=== PATIENT | female | born 1965 | race Caucasian/White ===

== ENCOUNTER → 2017-01-13 | Outpatient (CLI) | payer BC ==
--- NOTE | 2017-01-13 11:38 | MM ---
Reason for exam: additional evaluation requested from prior study. Last mammogram was performed 1 year ago. History: Patient is postmenopausal and has history of breast cancer at age 49. Malignant MG pre op needle loc LT of the left breast, December 19, 2014. Lumpectomy of the left breast, December 19, 2014. Malignant MG stereo VAD BX LT of the left breast, December 01, 2014. Benign US biopsy breast VAD RT of the right breast, December 01, 2014. Radiation therapy of the left breast, 2014. Took hormonal contraceptives for 3 years beginning at age 17. Taking antineoplastic for 1 year beginning at age 49. Physical Findings: Nurse did not find any significant physical abnormalities on exam. MG Diagnostic Mammo w CAD PALOMO Bilateral CC and MLO view(s) were taken. Prior study comparison: January 12, 2016, bilateral MG diagnostic mammo w CAD PALOMO. August 07, 2015, bilateral MG 3d diag mammo w/cad PALOMO. There are scattered fibroglandular densities. Finding: Architectural distortion in the left breast consistent previous surgery. No significant changes in finding since January 12, 2016 and August 07, 2015. These results were verbally communicated with the patient and result sheet given to the patient on 01/13/17. ASSESSMENT: Benign, BI-RAD 2 RECOMMENDATION: Follow-up diagnostic mammogram of both breasts in 1 year.
== END | disposition home or self-care (01) ==
LOC: RADMAMWWP 10:17
PROVIDERS: ATTEND Radiology Diagnostic Radiology
DX: Z08 Encounter for follow-up examination after completed treatment for malignant neoplasm (principal); Z85.3 Personal history of malignant neoplasm of breast

== ENCOUNTER → 2017-06-17 | Outpatient (CLI) | payer BC ==
--- NOTE | 2017-06-17 15:35 | BD ---
EXAMINATION TYPE: MG DEXA axial skeleton. DATE OF EXAM: 06/17/2017 COMPARISON: DEXA bone scan April 26, 2015 CLINICAL HISTORY: Postmenopausal female Height: 65 Weight: 172.4 FRAX RISK QUESTIONS: Alcohol (3 or more units per day): no Family History (Parent hip fracture): no Glucocorticoids (More than 3mos): no (Ex: prednisone, prednisolone, methylprednisolone, dexamethasone, and hydrocortisone). History of Fracture in Adulthood: no Secondary Osteoporosis: 1. Type 1 Diabetes: no 2. Hyperthyroidism: no 3. Menopause before 45: no 4. Malnutrition: no 5. Chronic liver disease: no Rheumatoid Arthritis: no Current Tobacco Use: no RISK FACTORS HISTORY OF: Hip Fracture (Right/Left): no Spine Fracture: no History of Wrist Fracture: no Surgery to Spine/Hip(right/left)/Wrist (right/left): no family History of Osteoporosis: no Active: no Diet low in dairy products/other sources of calcium: no Postmenopausal woman: age 43 Lost more than 2 inches in height since high school: no Frequent falls: no Poor Health: no Hyperparathyroidism: no Adrenal Insufficiency: no MEDICATIONS: aldactone, dynzide plaquil, vit d, calcium Arimidex Thyroid Medications: synthroid How Long: Additional History: ot has had breast cancer EXAM MEASUREMENTS: Bone mineral densitometry was performed using the [employer] System. Bone mineral density as measured about the Lumbar spine is: ----- L1-L4(G/cm2): 1.291 T Score Values are as follows: ----- L2: 1.4 ----- L3: 2.2 ----- L4: -0.3 ----- L1-L4: 0.9 Bone mineral density has: increased 2.3 % since study of: 04.26.2015 Bone mineral density about the R hip (g/cm2): 0.959 Bone mineral density about the L hip (g/cm2): 0.941 T Score values are as follows: -----R Neck: -0.6 -----L Neck: -0.7 -----R Total: 0.0 -----L Total: -0.3 Bone mineral density has: decreased -2.4 % since study of: 04.26.2015 IMPRESSION: Normal (Values between +1 and -1 indicate normal bone mass). Consider repeating this study in 5 year s or sooner if there is some new clinical indication. NOTE: T-SCORE=SD OF THE YOUNG ADULT MEAN.
== END | disposition home or self-care (01) ==
LOC: RADBDWWP 14:47
PROVIDERS: ATTEND Internal Medicine Hematology & Oncology
DX: C50.919 Malignant neoplasm of unspecified site of unspecified female breast (principal); Z79.890 Hormone replacement therapy; N95.1 Menopausal and female climacteric states
CPT/HCPCS: 77080

== ENCOUNTER → 2018-01-14 | Outpatient (CLI) | payer BC ==
--- NOTE | 2018-01-15 08:49 | MM ---
Reason for exam: screening (asymptomatic). Last mammogram was performed 1 year ago. History: Patient is postmenopausal and has history of breast cancer at age 49. Malignant MG pre op needle loc LT of the left breast, December 19, 2014. Lumpectomy of the left breast, December 19, 2014. Malignant MG stereo VAD BX LT of the left breast, December 01, 2014. Benign US biopsy breast VAD RT of the right breast, December 01, 2014. Radiation therapy of the left breast, 2014. Took hormonal contraceptives for 3 years beginning at age 17. Taking antineoplastic for 1 year beginning at age 49. Physical Findings: A clinical breast exam by your physician is recommended on an annual basis and results should be correlated with mammographic findings. MG Screening Mammo w CAD Bilateral CC and MLO view(s) were taken. Prior study comparison: January 13, 2017, bilateral MG diagnostic mammo w CAD PALOMO. January 12, 2016, bilateral MG diagnostic mammo w CAD PALOMO. The breast tissue is heterogeneously dense. This may lower the sensitivity of mammography. Post operative changes on the left breast. ASSESSMENT: Benign, BI-RAD 2 RECOMMENDATION: Routine screening mammogram of both breasts in 1 year.
== END | disposition home or self-care (01) ==
LOC: RADMAMWWP 12:58
PROVIDERS: ATTEND Radiology Diagnostic Radiology
DX: Z12.31 Encounter for screening mammogram for malignant neoplasm of breast (principal); C50.912 Malignant neoplasm of unspecified site of left female breast
CPT/HCPCS: 77067

== ENCOUNTER → 2019-01-11 | Outpatient (CLI) | payer BC ==
--- NOTE | 2019-01-12 14:36 | MM ---
Reason for exam: screening (asymptomatic). Last mammogram was performed 1 year ago. History: Patient is postmenopausal and has history of breast cancer at age 49. Malignant MG pre op needle loc LT of the left breast, December 19, 2014. Lumpectomy of the left breast, December 19, 2014. Malignant MG stereo VAD BX LT of the left breast, December 01, 2014. Benign US biopsy breast VAD RT of the right breast, December 01, 2014. Radiation therapy of the left breast, 2014. Took hormonal contraceptives for 3 years beginning at age 17. Taking antineoplastic for 1 year beginning at age 49. Took other hormone for 4 years. Physical Findings: A clinical breast exam by your physician is recommended on an annual basis and results should be correlated with mammographic findings. MG Screening Mammo w CAD Bilateral CC and MLO view(s) were taken. Prior study comparison: January 14, 2018, bilateral MG screening mammo w CAD. January 13, 2017, bilateral MG diagnostic mammo w CAD PALOMO. The breast tissue is heterogeneously dense. This may lower the sensitivity of mammography. Benign appearing bilateral calcifications. No suspicious abnormality. Left post therapy change. No significant changes when compared with prior studies. ASSESSMENT: Benign, BI-RAD 2 RECOMMENDATION: Routine screening mammogram of both breasts in 1 year.
== END | disposition home or self-care (01) ==
LOC: RADMAMWWP 14:43
PROVIDERS: ATTEND Radiology Diagnostic Radiology
DX: Z12.31 Encounter for screening mammogram for malignant neoplasm of breast (principal)
CPT/HCPCS: 77067

== ENCOUNTER → 2019-05-12 | Outpatient (CLI) | payer BC ==
--- NOTE | 2019-05-12 16:15 | BD ---
EXAMINATION TYPE: Axial Bone Density DATE OF EXAM: 05/12/2019 COMPARISON: NONE CLINICAL HISTORY: Height: 5 FT 4 1/4IN Weight: 185 FRAX RISK QUESTIONS: Glucocorticoids (More than 3mos): YES (Ex: prednisone, prednisolone, methylprednisolone, dexamethasone, and hydrocortisone). Secondary Osteoporosis: 3. Menopause before 45: YES Rheumatoid Arthritis: YES Current Tobacco Use: YES RISK FACTORS HISTORY OF: Active: YES Postmenopausal woman: AGE 42 MEDICATIONS: Thyroid Medications: YES Which medication: LEVOTHYROXINE How Long: APPROX 2004 Additional Medications: LEVOTHYROXINE, PLAQUENIL, ALDACTONE, DIAZIDE, ARIMEX, Additional History: PT HAS LUPUS EXAM MEASUREMENTS: Bone mineral densitometry was performed using the [email or web address] System. Bone mineral density as measured about the Lumbar spine is: ----- L1-L4(G/cm2): 1.354 T Score Values are as follows: ----- L2: 2.4 ----- L3: 3.8 ----- L4: -0.2 ----- L1-L4: 1.4 Bone mineral density has: INCREASED 7.4 % since study of: 2017 Bone mineral density about the R hip (g/cm2): 0.957 Bone mineral density about the L hip (g/cm2): 0.932 T Score values are as follows: -----R Neck: -0.6 -----L Neck: -0.8 -----R Total: -0.3 -----L Total: -0.3 Bone mineral density has: DECREASED -1.4 % since study of: 2017 IMPRESSION: Normal (Values between +1 and -1 indicate normal bone mass). Consider repeating this study in 5 year s or sooner if there is some new clinical indication. NOTE: T-SCORE=SD OF THE YOUNG ADULT MEAN.
== END | disposition home or self-care (01) ==
LOC: RADBDWWP 09:15
PROVIDERS: ATTEND Internal Medicine Hematology & Oncology
DX: D05.90 Unspecified type of carcinoma in situ of unspecified breast (principal); N95.1 Menopausal and female climacteric states; Z79.890 Hormone replacement therapy
CPT/HCPCS: 77080

== ENCOUNTER → 2020-07-24 | Outpatient (CLI) | payer BC ==
--- NOTE | 2020-07-25 12:19 | MM ---
Reason for exam: screening (asymptomatic). Last mammogram was performed 1 year and 6 months ago. History: Patient is postmenopausal and has history of breast cancer at age 49. Malignant MG pre op needle loc LT of the left breast, December 19, 2014. Lumpectomy of the left breast, December 19, 2014. Malignant MG stereo VAD BX LT of the left breast, December 01, 2014. Benign US biopsy breast VAD RT of the right breast, December 01, 2014. Radiation therapy of the left breast, 2014. Took hormonal contraceptives for 3 years beginning at age 17. Taking antineoplastic for 1 year beginning at age 49. Took other hormone for 5 years. Physical Findings: A clinical breast exam by your physician is recommended on an annual basis and results should be correlated with mammographic findings. MG Screening Mammo w CAD Bilateral CC and MLO view(s) were taken. Prior study comparison: January 11, 2019, bilateral MG screening mammo w CAD. January 14, 2018, bilateral MG screening mammo w CAD. The breast tissue is heterogeneously dense. This may lower the sensitivity of mammography. Finding #1: Architectural distortion in the upper outer quadrant, middle, posterior position of the left breast consistent with known lumpectomy changes. Finding #2: There are typically benign dystrophic calcifications in the right breast. There is no discrete abnormality. ASSESSMENT: Benign, BI-RAD 2 RECOMMENDATION: Routine screening mammogram of both breasts in 1 year.
== END | disposition home or self-care (01) ==
LOC: RADMAMWWP 11:14
PROVIDERS: ATTEND Radiology Diagnostic Radiology
DX: Z12.31 Encounter for screening mammogram for malignant neoplasm of breast (principal); Z85.3 Personal history of malignant neoplasm of breast
CPT/HCPCS: 77067

== ENCOUNTER → 2021-07-25 | Outpatient (CLI) | payer BC ==
--- NOTE | 2021-07-27 10:41 | MM ---
Reason for exam: screening (asymptomatic). Last mammogram was performed 1 year ago. History: Patient is postmenopausal and has history of breast cancer at age 49. Malignant MG pre op needle loc LT of the left breast, December 19, 2014. Lumpectomy of the left breast, December 19, 2014. Malignant MG stereo VAD BX LT of the left breast, December 01, 2014. Benign US biopsy breast VAD RT of the right breast, December 01, 2014. Radiation therapy of the left breast, 2014. Took hormonal contraceptives for 3 years beginning at age 17. Taking antineoplastic for 1 year beginning at age 49. Took other hormone for 5 years. Physical Findings: A clinical breast exam by your physician is recommended on an annual basis and results should be correlated with mammographic findings. MG Screening Mammo w CAD Bilateral CC and MLO view(s) were taken. Prior study comparison: July 24, 2020, bilateral MG screening mammo w CAD. January 11, 2019, bilateral MG screening mammo w CAD. The breast tissue is heterogeneously dense. This may lower the sensitivity of mammography. There is no discrete abnormality. No significant changes when compared with prior studies. ASSESSMENT: Benign, BI-RAD 2 RECOMMENDATION: Routine screening mammogram of both breasts in 1 year.
== END | disposition home or self-care (01) ==
LOC: RADMAMWWP 13:51
PROVIDERS: ATTEND Radiology Radiation Oncology
DX: C50.912 Malignant neoplasm of unspecified site of left female breast (principal)
CPT/HCPCS: 77067

== ENCOUNTER → 2022-12-26 | Outpatient (CLI) | payer BC ==
--- NOTE | 2022-12-26 07:38 | XR ---
EXAMINATION TYPE: XR lumbosacral spine min 4V DATE OF EXAM: 12/26/2022 7:30 AM INDICATION: Patient age:Female; 57 years old; Reason for study: M54.9 dorsalgia; COMPARISON: None TECHNIQUE: Frontal, lateral , bilateral oblique and coned in L5-S1 lateral views of the spine. FINDINGS: No evidence of any acute osseous pathology. No evidence of loss of vertebral body height i s seen. There is scoliosis alignment of the lumbar vertebral bodies with dextro scoliosis apex L2-L3 which is mild. Mild scattered disc space narrowing worse at L2-L3. Multilevel marginal osteophyte for mation throughout the visualized spine. There is facet joint arthropathy throughout the spine. Scatte red at least mild neural foraminal stenosis worse at L5-S1. IMPRESSION: 1. No acute fracture. 2. Mild to moderate multilevel disc degeneration.
== END | disposition home or self-care (01) ==
LOC: RADXRMAIN 07:11
PROVIDERS: ATTEND Physician Assistant
DX: M51.36 Other intervertebral disc degeneration, lumbar region (principal)
CPT/HCPCS: 72110

== ENCOUNTER → 2023-02-14 | Outpatient (CLI) | payer BC ==
--- NOTE | 2023-02-14 10:20 | XR ---
EXAMINATION TYPE: XR Hip Bilateral Complete DATE OF EXAM: 02/14/2023 COMPARISON: NONE HISTORY: Pain TECHNIQUE: 2 views submitted FINDINGS: There is no evidence of erosive change or acute fracture. There is hypertrophic change of the acetabulum bilaterally. Vascular calcification pelvis noted. IMPRESSION: 1. Hypertrophic change of the acetabulum bilaterally can be associated with femoral acetabular manage ment..
== END | disposition home or self-care (01) ==
LOC: RADXRMAIN 08:42
PROVIDERS: ATTEND Physician Assistant
DX: M25.812 Other specified joint disorders, left shoulder (principal); M25.811 Other specified joint disorders, right shoulder
CPT/HCPCS: 73521

== ENCOUNTER 2023-02-15 12:48 | Emergency (ER) | payer BC ==
[2023-02-15] MEDS ORDERED: methylPREDNISolone SOD SUCCI 125 MG/2 ML VIAL IM STA (13:29)
[2023-02-15] MEDS ORDERED: KETOROLAC 15 MG/ML 1 ML VIAL IM STA (13:29)
--- NOTE | 2023-02-15 13:34 | ED ---
General Adult HPI - General Chief complaint: Extremity Injury, Lower Stated complaint: Right hip pain Time Seen by Provider: 02/15/23 13:05 Source: patient Mode of arrival: ambulatory Limitations: no limitations - History of Present Illness Initial comments: 57-year-old female with a past medical history of hypertension, Sjogren's disease, thyroid disorder presents to the emergency room for right leg pain. Patient states that she has had back pain for about a year now and has had pain extending down into the right lateral leg on and off. Usually it is muscle cramps. However today she woke up with a burning pain and the leg felt hot in the right lateral thigh. Patient states it felt similar to a blood clot she had in the past in her other leg and she is very concerned she has a blood clot. She denies any weakness of the leg, denies any bladder or bowel changes, saddle anesthesia, fevers or chills, IV drug abuse. Denies any difficulty walking. - Related Data Home Medications Medication Instructions Recorded Confirmed Plaquenil(Unknown Dose) 12/19/14 12/19/14 Synthroid(Unknown Dose) 12/19/14 12/19/14 Triamterene-Hctz 37.5-25Mg 1 each PO DAILY 12/19/14 12/19/14 [Dyazide] Previous Rx's Medication Instructions Recorded predniSONE 50 mg PO DAILY #5 tablet 02/15/23 Allergies Allergy/AdvReac Type Severity Reaction Status Date / Time Iodinated Contrast Media Allergy Rash/Hives Verified 02/15/23 13:04 [Iodinated Contrast Media - IV Dye] lidocaine Allergy Rash/Hives Verified 02/15/23 13:04 penicillin G Allergy Rash/Hives Verified 02/15/23 13:04 Sulfa (Sulfonamide Allergy Rash/Hives Verified 02/15/23 13:04 Antibiotics) Review of Systems ROS Statement: Those systems with pertinent positive or pertinent negative responses have been documented in the HPI. ROS Other: All systems not noted in ROS Statement are negative. 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 History of Any Multi-Drug Resistant Organisms: None Reported Past Surgical History: Appendectomy, Tubal Ligation Additional Past Surgical History / Comment(s): fibroids removed from uterus Past Anesthesia/Blood Transfusion Reactions: No Reported Reaction Past Psychological History: No Psychological Hx Reported Past Alcohol Use History: Rare Past Drug Use History: None Reported - Past Family History Mother Family Medical History: Hypertension General Exam Limitations: no limitations General appearance: alert, in no apparent distress Head exam: Present: atraumatic Eye exam: Present: normal appearance, PERRL, EOMI. Absent: scleral icterus, conjunctival injection ENT exam: Present: normal exam, mucous membranes moist Neck exam: Present: normal inspection, full ROM Respiratory exam: Present: normal lung sounds bilaterally. Absent: respiratory distress, wheezes Cardiovascular Exam: Present: regular rate, normal rhythm, normal heart sounds Extremities exam: Present: full ROM (Full range of motion of the right lower ext remity, positive straight leg raise test.), normal capillary refill (Capillary refill less than 2 seconds right lower extremity, DP pulse 2+). Absent: calf tenderness, other (No edema of the right lower extremity) Back exam: Absent: vertebral tenderness Neurological exam: Present: alert Course Vital Signs 02/15/23 13:01 Temperature 97.6 F Pulse Rate 62 Respiratory 18 Rate Blood Pressure 125/78 O2 Sat by Pulse 98 Oximetry Medical Decision Making - Medical Decision Making Was pt. sent in by a medical professional or institution (, PA, PAN HELPER, urgent care, hospital, or fdc...) When possible be specific @ -no Did you speak to anyone other than the patient for history (EMS, parent, family, police, friend...)? What history was obtained from this source @ -daughter Did you review nursing and triage notes (agree or disagree)? Why? @ -agreed Were old charts reviewed (outside hosp., previous admission, EMS record, old EKG, old radiological studies, urgent care reports/EKG's, fdc records)? Report findings @ -yes, xrays of back and hip Differential Diagnosis (chest pain, altered mental status, abdominal pain women, abdominal pain men, vaginal bleeding, weakness, fever, dyspnea, syncope, headache, dizziness, GI bleed, back pain, seizure, CVA, palpatations, mental health)? @ -Differential Back Pain: Strain, zoster, cauda equina syndrome, epidural abscess, vertebral osteomyelitis, discitis, fracture, subluxation, disc herniation, DJD, spinal stenosis, dissection, AAA, pancreatitis, peptic ulcer disease, pyelonephritis, kidney stone, this is not meant to be an all-inclusive list. EKG interpreted by me (3pts min.). @ -none X-rays interpreted by me (1pt min.). @ -None CT interpreted by me (1pt min.). @ -None done U/S interpreted by me (1pt. min.). @ -None done What testing was considered but not performed or refused? (CT, X-rays, U/S, labs)? Why? @ -CT lumbar spine, not performed because outpatient MRI will be a much better test with less radiation exposure What meds were considered but not given or refused? Why? @ -narcotics, not needed Did you discuss the management of the patient with other professionals (professionals i.e. , PA, PAN HELPER, lab, RT, psych nurse, protective services social worker, raw stock machine loader, teacher, driver's license reviewing officer, casework manager)? Give summary @ -yes, ER Dr Was smoking cessation discussed for >3mins.? @ -No Was critical care preformed (if so, how long)? @ -No Were there social determinants of health that impacted care today? How? (Homelessness, low income, unemployed, alcoholism, drug addiction, transportation, low edu. Level, literacy, decrease access to med. care, long-term, rehab)? @ -No Was there de-escalation of care discussed even if they declined (Discuss DNR or withdrawal of care, Hospice)? DNR status @ -No What co-morbidities impacted this encounter? (DM, HTN, Smoking, COPD, CAD, Cancer, CVA, ARF, Chemo, Hep., AIDS, mental health diagnosis, sleep apnea, morbid obesity)? @ -None Was patient admitted / discharged? Hospital course, mention meds given and route, prescriptions, significant lab abnormalities, going to OR and other pertinent info. @ -Patient was seen in the exam room. HPI and physical exam as documented. No weakness of the right lower extremity. No red flag symptoms. Patient was given IM steroids and Toradol. Ultrasound was performed which was negative for DVT. Symptoms consistent with lumbar radiculopathy. Undiagnosed new problem with uncertain prognosis? @ -No Drug Therapy requiring intensive monitoring for toxicity (Heparin, Nitro, Insulin, Cardizem)? @ -No Were any procedures done? @ -No Diagnosis/symptom? @ -Lumbar radiculopathy, paresthesia Acute, or Chronic, or Acute on Chronic? @ -Acute on chronic Uncomplicated (without systemic symptoms) or Complicated (systemic symptoms)? @ -Uncomplicated Side effects of treatment? @ -No Exacerbation, Progression, or Severe Exacerbation? @ -Laceration Poses a threat to life or bodily function? How? (Chest pain, [place], [place], pneumonia, PE, COPD, DKA, ARF, appy, cholecystitis, CVA, Diverticulitis, Homicidal, Suicidal, threat to staff... and all critical care pts) @ -No Disposition Clinical Impression: Lumbar radiculopathy, right, Paresthesia Disposition: HOME SELF-CARE Condition: Good Instructions (If sedation given, give patient instructions): Lumbar Radiculopathy (ED) Additional Instructions: Please take steroid as directed starting 02/16/23. Take Tylenol for pain, do not take Motrin on the days you take the steroid. Take the steroid with food. Follow-up with your doctor. You could discuss outpatient MRI with your primary care. Return to the emergency room for any worsening symptoms. Prescriptions: predniSONE 50 mg PO DAILY #5 tablet Is patient prescribed a controlled substance at d/c from ED?: No Referrals: Te Westbrook MD [Primary Care Provider] - 1-2 days Time of Disposition: 14:18
--- NOTE | 2023-02-15 14:12 | US ---
EXAMINATION TYPE: US venous doppler duplex LE RT DATE OF EXAM: 02/15/2023 1:30 PM COMPARISON: NONE CLINICAL INDICATION: Female, 57 years old with history of pain; Right hip pain SIDE PERFORMED: Right TECHNIQUE: The lower extremity deep venous system is examined utilizing real time linear array sonog roverto with graded compression, doppler sonography and color-flow sonography. VESSELS IMAGED: Common Femoral Vein Deep Femoral Vein Greater Saphenous Vein * Femoral Vein Popliteal Vein Small Saphenous Vein * Proximal Calf Veins (* superficial vessels) Right Leg: Negative for DVT IMPRESSION: Grayscale, color doppler, spectral doppler imaging performed of the deep veins of the lo wer extremities. There is normal flow, compressibility, vascular waveforms.
[2023-02-15 14:42] VITALS: BP 130/74; PULSE 67; RESP 16; TEMP 97.7
== END 2023-02-15 14:38 | disposition home or self-care (01) ==
LOC: EC 12:48
DX: M54.16 Radiculopathy, lumbar region (principal); R20.2 Paresthesia of skin; I10 Essential (primary) hypertension; Z88.0 Allergy status to penicillin; Z88.1 Allergy status to other antibiotic agents; Z88.2 Allergy status to sulfonamides
CPT/HCPCS: 93971; 99283; 96372 ×2; J2930; J1885

== ENCOUNTER → 2024-01-02 | Outpatient (CLI) | payer OTHER ==
--- NOTE | 2024-01-02 15:13 | BD ---
EXAMINATION TYPE: Axial Bone Density DATE OF EXAM: 01/02/2024 CLINICAL HISTORY: 58 years old Female. ICD-10 CODE: Z92.23 Personal History of Estrogen Therapy Height: 64 Weight: 193 FRAX RISK QUESTIONS: Family History (Parent hip fracture): no History of Fracture in Adulthood: yes Secondary Osteoporosis: no Patient has Sjogren's Disease Current Tobacco Use: yes RISK FACTORS HISTORY OF: Surgery to Spine/Hip(right/left)/Wrist (right/left): no MEDICATIONS: Thyroid Medications: no Which medication: Synthroid How Lon+ years Osteoporosis Medications: no EXAM MEASUREMENTS: Bone mineral densitometry was performed using the [employer] System. Bone mineral density as measured about the Lumbar spine is: ----- L1-L4(G/cm2): 1.354 T Score Values are as follows: ----- L1: -1.0 ----- L2: 2.2 ----- L3: 3.4 ----- L4: 0.7 ----- L1-L4: 1.4 Z Score Values are as follows: ----- L1: -0.5 ----- L2: 2.7 ----- L3: 3.9 ----- L4: 1.2 ----- L1-L4: 1.9 Bone mineral density has: not changed since study of: 05/12/2019 Bone mineral density about the R hip (g/cm2): 0.969 Bone mineral density about the L hip (g/cm2): 0.997 T Score values are as follows: -----R Neck: -1.0 -----L Neck: -1.0 -----R Total: -0.3 -----L Total: -0.1 Z Score values are as follows: -----R Neck: -0.3 -----L Neck: -0.2 -----R Total: 0.1 -----L Total: 0.3 Bone mineral density has: Increased 1.3% since study of: 05/12/2019 FRAX%s: The graph provided illustrates a 8.8% chance for a major osteoporotic fx and a 0.5% chance fo r the hips probability for fx in 10 years time. IMPRESSION: Normal (Values between +1 and -1 indicate normal bone mass). Consider repeating this study in 5 year s or sooner if there is some new clinical indication. NOTE: T-SCORE=SD OF THE YOUNG ADULT MEAN.
--- NOTE | 2024-01-05 15:03 | MM ---
Reason for Exam: Screening (asymptomatic). Last screening mammogram was performed 12 month(s) ago. Patient History: Menarche at age 10. First Full-Term at age 16. Postmenopausal. Breast cancer, left, age 49. 12/19/2014, Lumpectomy on the Left side. 12/19/2014, Malignant Core Biopsy on the left side. 12/01/2014, Malignant Core Biopsy on the left side. 12/01/2014, Benign Core Biopsy on the right side. 2014, Radiation Therapy on the left side. Prior Study Comparison: 07/24/2020 Bilateral Screening Mammogram, [facility]. 07/25/2021 Bilateral Screening Mammogram, [facility]. 12/26/2022 Bilateral MG 3D screening mammo w/cad, [facility]. Tissue Density: There are scattered areas of fibroglandular density. Findings: Analyzed By CAD. Right breast biopsy clip. Left breast surgical clips and calcifications. Right breast: There is no suspicious group of microcalcifications or new suspicious mass. Left breast: There is no suspicious group of microcalcifications or new suspicious mass. Overall Assessment: Benign, BI-RAD 2 Management: Screening Mammogram of both breasts in [address] [facility] will attempt to contact patient to return for supplemental views and ultrasound if indicated. Patient should continue monthly self-breast exams. A clinical breast exam by your physician is recommended on an annual basis. This exam should not preclude additional follow-up of suspicious palpable abnormalities. Note on Jaqueline scores and lifetime risk: 1. A Jaqueline score greater than 3% is considered moderate risk. If this is the case, consider specialist referral to assess eligibility for a risk reducing agent. 2. If overall lifetime risk for the development of breast cancer is 20% or higher, the patient may qualify for future screening with alternating mammogram and breast MRI. Electronically signed and approved by: Delfino Chawla DO
== END | disposition home or self-care (01) ==
LOC: RADMAMWWP 10:58
PROVIDERS: ATTEND Pediatrics
DX: Z12.31 Encounter for screening mammogram for malignant neoplasm of breast (principal); Z92.23 Personal history of estrogen therapy; Z78.0 Asymptomatic menopausal state
CPT/HCPCS: 77067; 77080

== ENCOUNTER 2024-01-26 07:12 | Day surgery (SDC) | payer OTHER ==
[2024-01-22 09:43] VITALS: BMI 31.7
[~2024-01-26 07:12] MED LIST: HYDROmorphone 0.5 MG/0.5 ML SYRINGE IVP PRN; MIDAZOLAM 2 MG/2 ML VIAL IV PRN; fentaNYL (PF) 50 MCG/ML 2 ML AMP IVP PRN
[2024-01-26 07:44] VITALS: RESP 16
[2024-01-26] MEDS: LACTATED RINGERS 1,000 ML IV SCH (07:50)
[2024-01-26] MEDS: DEXAMETHASONE SOD PHOSPHATE 4 MG/ML 1 ML VIAL IV ONE (07:52)
[2024-01-26] MEDS: ONDANSETRON 4 MG/2 ML VIAL IVP ONE (07:52)
[2024-01-26] MEDS: IV FLUID CONTINUATION 1,000 ML IV ONE (07:57)
[2024-01-26] MEDS: ACETAMINOPHEN TAB 500 MG TAB PO STA (08:35)
[2024-01-26] MEDS: HEPARIN SODIUM,PORCINE 5,000 UNIT/ML 1 ML VIAL SQ STA (08:35)
[2024-01-26] MEDS ORDERED: KETOROLAC 15 MG/ML 1 ML VIAL ONE (08:43)
[2024-01-26] MEDS ORDERED: MIDAZOLAM 2 MG/2 ML VIAL ONE (08:43)
[2024-01-26] MEDS ORDERED: SUGAMMADEX SODIUM 200 MG/2 ML SDV IV ONE (08:43)
[2024-01-26] MEDS ORDERED: HYDROmorphone (PF) 1 MG/ML ONE (08:43)
[2024-01-26] MEDS ORDERED: PROPOFOL 10 MG/ML 20 ML VIAL IV ONE (08:43)
[2024-01-26] MEDS ORDERED: fentaNYL (PF) 50 MCG/ML 2 ML AMP ONE (08:43)
[2024-01-26] MEDS ORDERED: SUCCINYLCHOLINE CHLORIDE 200 MG/10 ML VIAL IV ONE (08:43)
[2024-01-26] MEDS: BUPIVACAINE (PF) 0.25% 30 ML VIAL SQ ONE (09:02)
--- NOTE | 2024-01-26 10:10 | P.OP ---
Date of Procedure: 01/26/24 Preoperative Diagnosis: cholelithiasis Postoperative Diagnosis: cholelithiasis Procedure(s) Performed: laparoscopic cholecystectomy Anesthesia: DIANA Surgeon: Colt Grady Estimated Blood Loss (ml): 5 Pathology: other (gallbladder) Condition: stable Disposition: PACU Description of Procedure: The patient was placed on the operating table. The patient received a general endotracheal tube anesthesia. The patients abdomen was prepped and draped in the usual sterile fashion. Through an infraumbilical stab incision, the fascia of the anterior abdominal wall was grasped with a pair of Kochers and then the Veress needle was placed in the peritoneal cavity. Position of the Veress needle was confirmed with positive drop test. The abdomen was then insufflated. After adequate insufflation, the 10 mm trocar was placed in the peritoneal cavity. Following this the laparoscope was placed in the peritoneal cavity. The patient was placed in the head-up, right side up position and then a 5 mm trocar was placed in the right lateral and right subcostal position under direct visualization. A 8 mm trocar was placed in the epigastric position. The gallbladder was grasped in the fundus and infundibulum. Traction on the gallbladder was placed in the lateral and the cephalad positions. The triangle of Calot was visualized.. The cystic duct was bluntly dissected until the union of the cystic duct and common bile duct was seen. A critical view of safety was achieved. The cystic duct was then divided and sealed with the Harmonic scissors. A PDS Endoloop was then placed throughout the cystic duct stump. The cystic artery divided and sealed with the Harmonic scissors. The gallbladder was then removed from the liver bed using Harmonic scissors. The gallbladder was then extracted through the epigastric port site. Operative field was checked for any bleeding spots and Harmonic scissors was used to coagulate the liver bed. The abdomen was irrigated. The trocars were removed. The skin was closed using interrupted 3-0 Vicryl suture. Dermabond dressing were applied. The patient tolerated the procedure well.
[2024-01-26 13:24] VITALS: BP 118/62; PULSE 65; TEMP 97
== END 2024-01-26 11:29 | disposition home or self-care (01) ==
LOC: OR 07:12
PROVIDERS: ATTEND Surgery
DX: K80.10 Calculus of gallbladder with chronic cholecystitis without obstruction (principal); E03.9 Hypothyroidism, unspecified; I10 Essential (primary) hypertension; E78.5 Hyperlipidemia, unspecified; K21.00 Gastro-esophageal reflux disease with esophagitis, without bleeding; F17.200 Nicotine dependence, unspecified, uncomplicated; Z88.0 Allergy status to penicillin; Z88.2 Allergy status to sulfonamides; Z88.8 Allergy status to other drugs, medicaments and biological substances; Z88.4 Allergy status to anesthetic agent; Z79.890 Hormone replacement therapy; Z79.899 Other long term (current) drug therapy; Z79.82 Long term (current) use of aspirin
CPT/HCPCS: 47562; 88304; J2250; J0330; J1644; J1100; J0690; J2405; J3010; J1170; J1885; J2704; J0665

== ENCOUNTER 2024-02-09 11:05 | Day surgery (SDC) | payer OTHER ==
[2024-02-04 16:01] VITALS: BMI 30.7
[2024-02-09 11:33] VITALS: TEMP 97.1
[2024-02-09] MEDS: LACTATED RINGERS 1,000 ML IV SCH (11:54)
[2024-02-09] MEDS: IV FLUID CONTINUATION 1,000 ML IV ONE (11:54)
[2024-02-09] MEDS ORDERED: PROPOFOL 10 MG/ML 20 ML VIAL IV ONE (12:40)
--- NOTE | 2024-02-09 13:09 | P.OP ---
Date of Procedure: 02/09/24 Preoperative Diagnosis: GERD Screening colonoscopy Postoperative Diagnosis: antral gastritis Mild esophagitis Normal colon Procedure(s) Performed: EGD Colonoscopy Anesthesia: MAC Surgeon: Colt Grady Pathology: other (antrum, esophagus) Condition: stable Disposition: PACU Description of Procedure: the patient's placed on the operative table in the lateral position. She received IV sedation. The gastroscope placed oropharynx passed in the esophagus and stomach. Scope was then placed through the pylorus. The first and second portion of the duodenum appeared normal. Scope was then brought back the antrum this. Mildly inflamed. A biopsies performed. Scope was unretroflexed and remainder the stomach appeared normal. The GE junction was at 40 cm. The distal esophagus appeared mildly inflamed. A biopsies was performed. The proximal esophagus appeared normal. Scope withdrawn for patient. Next digital rectal exam was performed. This revealed no abnormalities. The flexible colonoscope was then placed patient anus and passed throughout the entire colon. The ileocecal valve was visualized. The cecum, ascending and transverse colon appeared normal. The descending and sigmoid colon appeared normal. Scope was then brought back ain the rectum appeared normal. Scope withdrawn for anus and this appeared normal. Scope withdrawn for patient.
[2024-02-09 13:29] VITALS: BP 132/85; PULSE 81; RESP 18
== END 2024-02-09 13:45 | disposition home or self-care (01) ==
LOC: ORWHC2ENDO 11:05
PROVIDERS: ATTEND Surgery
DX: Z12.11 Encounter for screening for malignant neoplasm of colon (principal); K29.50 Unspecified chronic gastritis without bleeding; K21.00 Gastro-esophageal reflux disease with esophagitis, without bleeding; I10 Essential (primary) hypertension; E07.9 Disorder of thyroid, unspecified; F17.200 Nicotine dependence, unspecified, uncomplicated; Z85.3 Personal history of malignant neoplasm of breast; Z79.890 Hormone replacement therapy; Z79.899 Other long term (current) drug therapy; Z88.0 Allergy status to penicillin; Z88.2 Allergy status to sulfonamides
CPT/HCPCS: 88305; 45378; 43239; J2704

== ENCOUNTER 2024-02-16 04:54 | Observation (INO) | payer OTHER ==
--- NOTE | 2024-02-16 05:20 | ED ---
Chest Pain HPI - General Source: patient, RN notes reviewed, old records reviewed Mode of arrival: ambulatory Limitations: no limitations - History of Present Illness MD Complaint: chest pain -: hour(s) (4) Pain Location: substernal, left chest Pain Radiation: none Severity: moderate Severity scale (1-10): 6 Quality: aching Consistency: constant Improves With: nothing Worsens With: nothing Anginal Symptoms: sense of impending doom Other Symptoms: palpitations Treatments Prior to Arrival: none <Jose Luis Ivey - Last Filed: 02/16/24 06:25> <Delfino Butcher - Last Filed: 02/16/24 08:21> - General Chief Complaint: Chest Pain Stated Complaint: Chest Pain Time Seen by Provider: 02/16/24 05:20 - History of Present Illness Initial Comments: This is a 58-year-old female to the ER for evaluation patient [facility] for evaluation regards to chest pain today. Left-sided chest pain began at work and has persisted since, persisted through the morning with severe left-sided chest pain worse when she takes deep breath. Patient has a complicated recent medical history including general surgery of gallbladder, upper and lower GI scopes (Jose Luis Ivey) - Related Data Home Medications Medication Instructions Recorded Confirmed Aspirin EC [Ecotrin Low Dose] 81 mg PO HS 01/22/24 02/09/24 Calcium 1000mg 2,000 mg PO HS 01/22/24 02/09/24 Cholecalciferol [Vitamin D3 (25 125 mcg PO HS 01/22/24 02/09/24 Mcg = 1000 Iu)] Estradiol Cream [Estrace Cream 1 gm VAGINAL MOTH 01/22/24 02/09/24 0.01%] Hydroxychloroquine Sulfate 200 mg PO HS 01/22/24 02/09/24 [Plaquenil] L. Paracasei/L. Rhamnosus 1 each PO HS 01/22/24 02/09/24 [Culturelle Adv Reg 11B Cfu Cap] Levothyroxine Sodium [Synthroid] 75 mcg PO HS 01/22/24 02/09/24 Spironolactone [Aldactone] 100 mg PO HS 01/22/24 02/09/24 Triamterene-Hctz 37.5-25Mg 1 cap PO HS 01/22/24 02/09/24 [Dyazide 37.5-25 Capsule] Allergies Allergy/AdvReac Type Severity Reaction Status Date / Time Iodinated Contrast Media Allergy Rash/Hives Verified 02/16/24 05:04 [Iodinated Contrast Media - IV Dye] lidocaine Allergy Rash/Hives Verified 02/16/24 05:04 penicillin G Allergy Rash/Hives Verified 02/16/24 05:04 Sulfa (Sulfonamide Allergy Rash/Hives Verified 02/16/24 05:04 Antibiotics) Review of Systems ROS Other: All systems not noted in ROS Statement are negative. <Jose Luis Ivey - Last Filed: 02/16/24 06:25> ROS Other: All systems not noted in ROS Statement are negative. <Delfino Butcher - Last Filed: 02/16/24 08:21> ROS Statement: Those systems with pertinent positive or pertinent negative responses have been documented in the HPI. 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, breast cancer History of Any Multi-Drug Resistant Organisms: None Reported Past Surgical History: Appendectomy, Breast Surgery, Cholecystectomy, Tubal Ligation Additional Past Surgical History / Comment(s): fibroids removed from /10/24 cholycystectomy, lumpectomy 2016 Past Anesthesia/Blood Transfusion Reactions: No Reported Reaction Additional Past Anesthesia/Blood Transfusion Reaction / Comment(s): no blood transfusion Past Psychological History: No Psychological Hx Reported Smoking Status: Current every day smoker Past Alcohol Use History: None Reported Past Drug Use History: None Reported - Past Family History Mother Family Medical History: Hypertension <Jose Luis Ivey - Last Filed: 02/16/24 06:25> General Exam Limitations: no limitations General appearance: alert, in no apparent distress, anxious Head exam: Present: atraumatic, normocephalic, normal inspection Eye exam: Present: normal appearance, PERRL, EOMI. Absent: scleral icterus, conjunctival injection, periorbital swelling ENT exam: Present: normal exam, mucous membranes moist Neck exam: Present: normal inspection. Absent: tenderness, meningismus, lymphadenopathy Respiratory exam: Present: normal lung sounds bilaterally. Absent: respiratory distress, wheezes, rales, rhonchi, stridor Cardiovascular Exam: Present: regular rate, normal rhythm, normal heart sounds. Absent: systolic murmur, diastolic murmur, rubs, gallop, clicks GI/Abdominal exam: Present: soft, normal bowel sounds. Absent: distended, tenderness, guarding, rebound, rigid Extremities exam: Present: normal inspection, full ROM, normal capillary refill. Absent: tenderness, pedal edema, joint swelling, calf tenderness Back exam: Present: normal inspection Neurological exam: Present: alert, oriented X3, CN II-XII intact Psychiatric exam: Present: normal affect, normal mood Skin exam: Present: warm, dry, intact, normal color. Absent: rash <Jose Luis Ivey - Last Filed: 02/16/24 06:25> Course <Jose Luis Ivey - Last Filed: 02/16/24 06:25> Vital Signs 02/16/24 02/16/24 02/16/24 04:59 05:48 06:17 Temperature 98.0 F Pulse Rate 94 78 99 Respiratory 18 18 20 Rate Blood Pressure 129/87 142/98 167/100 O2 Sat by Pulse 96 93 L 96 Oximetry - Reevaluation(s) Reevaluation #1: 02/16/24 05:38 Medical records reviewed (Jose Luis Ivey) Reevaluation #4: Was pt. sent in by a medical professional or institution (, PA, BLENDER MACHINE OPERATOR, urgent care, hospital, or usp...) When possible be specific @ -no Did you speak to anyone other than the patient for history (EMS, parent, family, police, friend...)? What history was obtained from this source @ -no Did you review nursing and triage notes (agree or disagree)? Why? @ -agree Are old charts reviewed (outside hosp., previous admission, EMS record, old EKG, old radiological studies, urgent care reports/EKG's, usp records)? Report findings @ -yes Differential Diagnosis (chest pain, altered mental status, abdominal pain women, abdominal pain men, vaginal bleeding, weakness, fever, dyspnea, syncope, headache, dizziness, GI bleed, back pain, seizure, CVA, palpatations, mental health, musculoskeletal)? @ -prior EKG interpreted by me (3pts min.). @ -yes X-rays interpreted by me (1pt min.). @ -yes negative for acute disease CT interpreted by me (1pt min.). @ -no U/S interpreted by me (1pt. min.). @ -no What testing was considered but not performed or refused? (CT, X-rays, U/S, labs)? Why? @ -none What meds were considered but not given or refused? Why? @ -none Did you discuss the management of the patient with other professionals (professionals i.e. Dr., PA, BLENDER MACHINE OPERATOR, lab, RT, psych nurse, social worker health services, welt pocket machine operator, teacher, code enforcement officer, caseworker intake)? Give summary @ -no Was smoking cessation discussed for >3mins.? @ -no Was critical care preformed (if so, how long)? @ -no Were there social determinants of health that impacted care today? How? (Pro elessness, low income, unemployed, alcoholism, drug addiction, transportation, low edu. Level, literacy, decrease access to med. care, prison, rehab)? @ -none Was there de-escalation of care discussed even if they declined (Discuss DNR or withdrawal of care, Hospice)? DNR status @ -no What co-morbidities impacted this encounter? (DM, HTN, Smoking, COPD, CAD, Cancer, CVA, ARF, Chemo, Hep., AIDS, mental health diagnosis, sleep apnea, morbid obesity)? @ -none Was patient admitted / discharged? Hospital course, mention meds given and route, prescriptions, significant lab abnormalities, going to OR and other pertinent info. @ - Undiagnosed new problem with uncertain prognosis? @ -no Drug Therapy requiring intensive monitoring for toxicity (Heparin, Nitro, Insulin, Cardizem)? @ -no Were any procedures done? @ -no Diagnosis/symptom? @ - Acute, or Chronic, or Acute on Chronic? @ -Acute Uncomplicated (without systemic symptoms) or Complicated (systemic symptoms)? @ -Complicated Side effects of treatment? @ -no Exacerbation, Progression, or Severe Exacerbation? @ -exacerbation Poses a threat to life or bodily function? How? (Chest pain, [place], [place], pneumonia, PE, COPD, DKA, ARF, appy, cholecystitis, CVA, Diverticulitis, Homicidal, Suicidal, threat to staff... and all critical care pts) @ -yes (Jose Luis Ivey) Reevaluation #5: Differential Chest Pain: Stable Angina, Unstable Angina, STEMI, NSTEMI Aortic Dissection, Pneumothorax, Musculoskeletal, Esophageal Spasm GERD, Cholecystitis, Pancreatitis, Zoster, this is not meant to be an all-inclusive list. (Jose Luis Ivey) Chest Pain MDM <Delfino Butcher - Last Filed: 02/16/24 08:21> - [facility] Care was signed out at shift change awaiting CT imaging of the chest and abdomen as well as reevaluation. Imaging was negative for acute process. Laboratory testing was unremarkable. Patient remained quite symptomatic with pleuritic left-sided chest pain. Given additional pain medication. She will be placed in observation with consults both to general surgery and cardiology. Case d iscussed with Dr. Valadez. (Delfino Butcher) Disposition <Jose Luis Ivey - Last Filed: 02/16/24 06:25> Is patient prescribed a controlled substance at d/c from ED?: No Time of Disposition: 08:20 <Delfino Butcher - Last Filed: 02/16/24 08:21> Clinical Impression: Chest pain Disposition: ADMITTED IP TO THIS [facility] Condition: Stable Referrals: Te Westbrook MD [Primary Care Provider] - 1-2 days
[2024-02-16 05:29] LABS: Basophils % (A) 1 %; Eosinophils # (A) 0.3 k/uL (0-0.7); Eosinophils % (A) 3 %; HCT 45.6 % (34.0-46.0); HGB 15.3 gm/dL (11.4-16.0); Lymphocytes # (A) 2.3 k/uL (1.0-4.8); Lymphocytes % (A) 24 %; MCH 32.2 pg (25.0-35.0); MCHC 33.7 g/dL (31.0-37.0); MCV 95.5 fL (80.0-100.0); Mean Platelet Volume 8.4; Monocytes # (A) 0.5 k/uL (0-1.0); Monocytes % (A) 5 %; Neutrophils # (A) 6.4 k/uL (1.3-7.7); Neutrophils % (A) 67 %; Platelet Count 236 k/uL (150-450); RBC 4.77 m/uL (3.80-5.40); WBC 9.6 k/uL (3.8-10.6)
[2024-02-16 05:38] LABS: INR 0.9 (<1.2); Partial Thromboplastin Time 23.5 sec (22.0-30.0); Prothrombin Time 9.9 sec (10.0-12.5)
[2024-02-16 05:40] LABS: ALT 26 U/L (4-34); AST 25 U/L (14-36); African American GFR (CKD) 87 (>60 ml/min/1.73 sqM); Albumin 4.6 g/dL (3.5-5.0); Alkaline Phosphatase 58 U/L (38-126); Anion Gap 9 mmol/L; Blood Urea Nitrogen 20 mg/dL (7-17); Calcium 9.6 mg/dL (8.4-10.2); Carbon Dioxide 23 mmol/L (22-30); Chloride 105 mmol/L (98-107); Glucose 111 mg/dL (74-99); Lipase 156 U/L (23-300); Magnesium 2.2 mg/dL (1.6-2.3); Non-African American GFR(CKD) 76 (>60 ml/min/1.73 sqM); Potassium 3.9 mmol/L (3.5-5.1); Sodium 137 mmol/L (137-145); Total Bilirubin 0.7 mg/dL (0.2-1.3); Total Protein 7.3 g/dL (6.3-8.2)
[2024-02-16 05:49] LABS: NT-Pro-B-Type Natriuretic Pept 34 pg/mL
[2024-02-16] MEDS: HYDROmorphone 1 MG/ML 1 ML SYRINGE IVP STA ×2 (05:51→08:12)
[2024-02-16] MEDS: SODIUM CHLORIDE 0.9% 1,000 ML IV STA (05:58)
[2024-02-16] MEDS: FAMOTIDINE 20 MG/2 ML VIAL IV STA (05:59)
[2024-02-16] MEDS: methylPREDNISolone SOD SUCCI 125 MG/2 ML VIAL IV STA (06:03)
[2024-02-16] MEDS: diphenhydrAMINE 50 MG/ML 1 ML VIAL IVP STA (06:05)
[2024-02-16] MEDS: LORazepam 2 MG/ML INJ IV STA (06:27)
--- NOTE | 2024-02-16 07:38 | CT ---
EXAMINATION TYPE: CT angio chest DATE OF EXAM: 02/16/2024 COMPARISON: None HISTORY: Chest pain CT DLP: 1506.9 mGycm CONTRAST: CT chest with contrast and 3D reconstruction with MIP imaging is performed without and with IV Contra st, patient injected with 100 ml mL of Isovue 370. Contrast-enhanced CT of the chest was performed through the course of the pulmonary arteries with sonya g and mediastinal window settings submitted. 3D reconstruction with MIP imaging was also performed. PULMONARY ARTERIES: The pulmonary arteries and their major tributaries are patent. I do not see jose daniel dence for sizable filling defect to suggest pulmonary embolic process. LUNGS: The lungs are clear and free of infiltrate. Basilar compressive atelectasis. No pulmonary nodu le or mass is detected. No pleural effusion. MEDIASTINUM: Thoracic aorta is of normal . The heart is not enlarged. No evidence for mediastinal mass. No mediastinal lymph nodes greater than 1cm. HILAR STRUCTURES: No evidence for mass. No hilar lymph nodes greater than 1 cm. UPPER ABDOMEN: No significant abnormality is seen. IMPRESSION: 1. No evidence for Pulmonary embolism at this time.
--- NOTE | 2024-02-16 07:44 | CT ---
EXAMINATION TYPE: CT abdomen pelvis w con DATE OF EXAM: 02/16/2024 COMPARISON: None HISTORY: Chest pain CT DLP: 1506.9 mGycm CONTRAST: CT scan of the abdomen and pelvis is performed without Oral Contrast and with IV Contrast, patient in jected with 100 ml mL of Isovue 370. FINDINGS: LUNG BASES-: No visible nodule. No infiltrate. Basilar compressive atelectasis noted. LIVER/GB: The gallbladder surgically absent. No space occupying hepatic lesion. Biliary tree is of normal caliber. PANCREAS: No inflammation. No distinct mass. SPLEEN: No splenic enlargement. No lesion seen. ADRENALS: No nodule. No thickening. KIDNEYS/BLADDER: No hydronephrosis. No nephrolithiasis. No distinct renal mass. Urinary bladder g rossly unremarkable. BOWEL: Appendectomy changes seen. Normal bowel caliber. No inflammation. GENITAL ORGANS: No gross abnormality. LYMPH NODES: No greater than 1cm abdominal or pelvic lymph nodes are appreciated. AORTA: No significant abnormality. OSSEOUS STRUCTURES: Severe degenerative change lumbar spine. OTHER: No significant additional abnormality is seen. IMPRESSION: 1. No acute process appreciated.
[2024-02-16] MEDS: MAG HYDROX/AL HYDROX/SIMETH 30 ML, HYOSCYAMINE ELIXIR 10 ML PO STA (08:11)
[2024-02-16] MEDS ORDERED: NALOXONE 0.4 MG/ML 1 ML VIAL IV PRN (08:16)
[2024-02-16] MEDS ORDERED: HYDROmorphone 1 MG/ML 1 ML SYRINGE IVP PRN (08:16)
[2024-02-16] MEDS ORDERED: ONDANSETRON 4 MG/2 ML VIAL IVP PRN (08:16)
[2024-02-16] MEDS: KETOROLAC 15 MG/ML 1 ML VIAL IVP STA (08:57)
[2024-02-16] MEDS: SODIUM CHLORIDE 0.9% 1,000 ML IV SCH (08:59)
[2024-02-16] MEDS: ENOXAPARIN 40 MG/0.4 ML SYRINGE SQ SCH (11:39)
--- NOTE | 2024-02-16 14:33 | P.GSCN ---
History of Present Illness Consult date: 02/16/24 History of present illness: CHIEF COMPLAINT: chest pain HISTORY OF PRESENT ILLNESS: This is a 58-year-old female who presented with chest pain. Patient reports pain is on the left side of the chest. Pain began this morning and has worsened. Pain radiates up into the left shoulder and neck. It is worse with taking a deep breath. Patient had recent cholecystectomy on January 26, 2024 and had a EGD and colonoscopy on February 08 which had revealed gastritis esophagitis and a normal colonoscopy. Patient reports no nausea or vomiting. She reports having regular bowel movements. She has been tolerating diet. CT scan abdomen was negative. Surgical service consulted due to recent gallbladder surgery. PAST MEDICAL HISTORY: Breast Cancer, Hypertension, Thyroid Disorder, Shogens PAST SURGICAL HISTORY: Appendectomy, Breast Surgery, Cholecystectomy, Tubal Ligation, fibroids removed from [id number]/10/24 MEDICATIONS: See below ALLERGIES: See below SOCIAL HISTORY: No illicit drug use. REVIEW OF SYSTEMS: CONSTITUTIONAL: Denies fever or chills. HEENT: Denies blurred vision, vision changes, or eye pain. Denies hemoptysis CARDIOVASCULAR: Denies chest pain or pressure. RESPIRATORY: No shortness of breath. GASTROINTESTINAL: See HPI for pertinent findings HEMATOLOGIC: Denies bleeding disorders. GENITOURINARY: Denies any blood in urine or increased urinary frequency. SKIN: Denies pruitis. Denies rash. PHYSICAL EXAM: VITAL SIGNS: Reviewed GENERAL: Well-developed in no acute distress. HEENT: No sclera icterus. Extraocular movements grossly intact. Moist buccal mucosa. Head is atraumatic, normocephalic. No nasal drainage. ABDOMEN: Soft. Nondistended. Nontender. Incision sites of healed clean dry and intact NEUROLOGIC: Alert and oriented. Cranial nerves II through XII grossly intact. LABORATORY DATA: WBC 9.6 Hgb 15.3 platelets 236 Sodium 137 potassium 3.9 creatinine 0.84 Troponin negative x 2 LFTs normal lipase 156 IMAGING: CT scan abdomen pelvis reports no acute process CTA of the chest negative for PE ASSESSMENT: 1. Chest pain 2. Cholelithiasis with recent laparoscopic cholecystectomy on January 26, 2024 3. Recent EGD and colonoscopy with gastritis and esophagitis and normal colon PLAN: -Continue cardiac workup -No surgical intervention planned -Continue to monitor Physician Community Development Specialist note has been reviewed by physician. Signing provider agrees with the documented findings, assessment, and plan of care. 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, breast cancer History of Any Multi-Drug Resistant Organisms: None Reported Past Surgical History: Appendectomy, Breast Surgery, Cholecystectomy, Tubal Ligation Additional Past Surgical History / Comment(s): fibroids removed from /10/24 cholycystectomy, lumpectomy 2016 Past Anesthesia/Blood Transfusion Reactions: No Reported Reaction Additional Past Anesthesia/Blood Transfusion Reaction / Comm: no blood transfusion Past Psychological History: No Psychological Hx Reported Smoking Status: Current every day smoker Past Alcohol Use History: None Reported Past Drug Use History: None Reported - Past Family History Mother Family Medical History: Hypertension Medications and Allergies Home Medications Medication Instructions Recorded Confirmed Type Aspirin EC [Ecotrin Low Dose] 81 mg PO HS 01/22/24 02/16/24 History Estradiol Cream [Estrace Cream 1 gm VAGINAL DIRECTED PRN 01/22/24 02/16/24 History 0.01%] Hydroxychloroquine Sulfate 400 mg PO HS 01/22/24 02/16/24 History [Plaquenil] Levothyroxine Sodium [Synthroid] 75 mcg PO HS 01/22/24 02/16/24 History Spironolactone [Aldactone] 100 mg PO HS 01/22/24 02/16/24 History Atorvastatin [Lipitor] 10 mg PO HS 02/16/24 02/16/24 History Calcium Carbonate [Calcium] 1,200 mg PO HS 02/16/24 02/16/24 History Cholecalciferol (Vitamin D3) 125 mcg PO HS 02/16/24 02/16/24 History [Vitamin D3 (125 MCG = 5,000 IU)] Lactobacillus Rhamnosus GG 1 cap PO HS 02/16/24 02/16/24 History [Culturelle] Phentermine HCl [Adipex-P] 37.5 mg PO DIRECTED 02/16/24 02/16/24 History Triamterene/Hydrochlorothiazid 1 tab PO HS 02/16/24 02/16/24 History [Triamterene-Hctz 37.5-25 mg Tb] Allergies Allergy/AdvReac Type Severity Reaction Status Date / Time Iodinated Contrast Media Allergy Rash/Hives Verified 02/16/24 10:05 [Iodinated Contrast Media - IV Dye] lidocaine Allergy Rash/Hives Verified 02/16/24 10:05 penicillin G Allergy Rash/Hives Verified 02/16/24 10:05 Penicillins Allergy Rash/Hives Verified 02/16/24 10:05 Sulfa (Sulfonamide Allergy Rash/Hives Verified 02/16/24 10:05 Antibiotics) Surgical - Exam Vital Signs Temp Pulse Resp BP Pulse Ox 98.0 F 94 18 129/87 96 02/16/24 04:59 02/16/24 04:59 02/16/24 04:59 02/16/24 04:59 02/16/24 04:59 Results - Labs 02/16/24 05:19 02/16/24 05:19 Abnormal Lab Results - Last 24 Hours (Table) 02/16/24 02/16/24 Range/Units 05:19 05:19 PT 9.9 L (10.0-12.5) sec BUN 20 H (7-17) mg/dL Glucose 111 H (74-99) mg/dL Diabetes panel 02/16/24 Range/Units 05:19 Sodium 137 (137-145) mmol/L Potassium 3.9 (3.5-5.1) mmol/L Chloride 105 (98-107) mmol/L Carbon Dioxide 23 (22-30) mmol/L BUN 20 H (7-17) mg/dL Creatinine 0.84 (0.52-1.04) mg/dL Glucose 111 H (74-99) mg/dL Calcium 9.6 (8.4-10.2) mg/dL AST 25 (14-36) U/L ALT 26 (4-34) U/L Alkaline Phosphatase 58 (38-126) U/L Total Protein 7.3 (6.3-8.2) g/dL Albumin 4.6 (3.5-5.0) g/dL Calcium panel 02/16/24 Range/Units 05:19 Calcium 9.6 (8.4-10.2) mg/dL Albumin 4.6 (3.5-5.0) g/dL Pituitary panel 02/16/24 Range/Units 05:19 Sodium 137 (137-145) mmol/L Potassium 3.9 (3.5-5.1) mmol/L Chloride 105 (98-107) mmol/L Carbon Dioxide 23 (22-30) mmol/L BUN 20 H (7-17) mg/dL Creatinine 0.84 (0.52-1.04) mg/dL Glucose 111 H (74-99) mg/dL Calcium 9.6 (8.4-10.2) mg/dL Adrenal panel 02/16/24 Range/Units 05:19 Sodium 137 (137-145) mmol/L Potassium 3.9 (3.5-5.1) mmol/L Chloride 105 (98-107) mmol/L Carbon Dioxide 23 (22-30) mmol/L BUN 20 H (7-17) mg/dL Creatinine 0.84 (0.52-1.04) mg/dL Glucose 111 H (74-99) mg/dL Calcium 9.6 (8.4-10.2) mg/dL Total Bilirubin 0.7 (0.2-1.3) mg/dL AST 25 (14-36) U/L ALT 26 (4-34) U/L Alkaline Phosphatase 58 (38-126) U/L Total Protein 7.3 (6.3-8.2) g/dL Albumin 4.6 (3.5-5.0) g/dL
--- NOTE | 2024-02-16 14:44 | P.CRDCN ---
History of Present Illness Consult date: 02/16/24 Consult reason: chest pain History of present illness: This is a 58-year-old female with past medical history of hypertension, hyperlipidemia, hypothyroidism, tobacco use and dependence, Sjogren's, and history of breast cancer status postlumpectomy and radiation therapy on the left. No chemotherapy. We have been asked to evaluate the patient for chest pain. Patient states that she developed what she thought was heartburn and she took a medication for this previously had taken Tums without improvement. She then developed pain behind her left shoulder blade and now it is under her left breast. She states the pain is still there. She has not taken any nitroglycerin. She does have some generalized chest wall tenderness which she believes is from her Sjogren's. She also has pain with deep breathing. Patient is seen today in the emergency center waiting for a bed on the cardiac stepdown unit. Blood pressure 119/78, heart rate 67. EKG: Sinus rhythm with no acute ST-T wave changes. Chest x-ray: No acute process CTA of the chest no PE CT of the abdomen pelvis with contrast no acute process Laboratory studies: Hemoglobin 15.3. D-dimer 0.29. Sodium 137, potassium 3.9, BUN 20 creatinine 0.84. Troponin negative x 3. proBNP 34. Home cardiac medications: Aspirin 81 mg daily, Lipitor 10 mg at bedtime, Aldactone 100 mg at bedtime, triamterene/hydrochlorothiazide 1 tablet at bedtime, also on levothyroxine. Review Of Systems: At the time of my exam: CONSTITUTIONAL: Denies fever or chills. HEENT: Denies blurred vision, vision changes, or eye pain. Denies hemoptysis CARDIOVASCULAR: Denies chest pain. Denies orthopnea. Denies PND. Denies palpitations RESPIRATORY: Denies shortness of breath. GASTROINTESTINAL: Denies abdominal pain. Denies nausea or vomiting. HEMATOLOGIC: Denies bleeding disorders. GENITOURINARY: Denies any blood in urine. SKIN: Denies puritis. Denies rash. Physical examination: Gen: This is a 58-year-old female in no acute distress. VS: reviewed HEENT: Head is atraumatic, normocephalic. Pupils equal, round. Sclerae is anicteric. NECK: Supple. No JVD. LUNGS: Clear to auscultation. No wheezes or rhonchi. No intercostal retractions. HEART: Regular rate and rhythm. No murmur. Generalized chest wall tenderness. ABDOMEN: Soft No tenderness. EXTREMITIES: No pedal edema. No calf tenderness. NEUROLOGICAL: Patient is awake, alert and oriented x3. Assessment: Atypical chest pain, acute coronary syndrome ruled out with negative troponins Hypertension Hyperlipidemia Hypothyroidism Tobacco use and dependence Sjogren's History of breast cancer s/p lumpectomy, radiation therapy Plan: Resume patient's home cardiac medications Obtain stress echocardiogram tomorrow Obtain 2-D echocardiogram and Doppler study to assess cardiac structure and function Smoking cessation. Patient will be provided with [employer] quit line information at discharge. Further recommendations to follow based upon clinical course Thank you kindly for this consultation. Nurse practitioner note has been reviewed, I agree with documented findings and plan of care. Patient was seen and examined. 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, breast cancer History of Any Multi-Drug Resistant Organisms: None Reported Past Surgical History: Appendectomy, Breast Surgery, Cholecystectomy, Tubal Ligation Additional Past Surgical History / Comment(s): fibroids removed from [facility]02/02/24 cholycystectomy, lumpectomy 2016 Past Anesthesia/Blood Transfusion Reactions: No Reported Reaction Additional Past Anesthesia/Blood Transfusion Reaction / Comment(s): no blood transfusion Past Psychological History: No Psychological Hx Reported Smoking Status: Current every day smoker Past Alcohol Use History: None Reported Past Drug Use History: None Reported - Past Family History Mother Family Medical History: Hypertension Medications and Allergies Home Medications Medication Instructions Recorded Confirmed Type Aspirin EC [Ecotrin Low Dose] 81 mg PO HS 01/22/24 02/16/24 History Estradiol Cream [Estrace Cream 1 gm VAGINAL DIRECTED PRN 01/22/24 02/16/24 History 0.01%] Hydroxychloroquine Sulfate 400 mg PO HS 01/22/24 02/16/24 History [Plaquenil] Levothyroxine Sodium [Synthroid] 75 mcg PO HS 01/22/24 02/16/24 History Spironolactone [Aldactone] 100 mg PO HS 01/22/24 02/16/24 History Atorvastatin [Lipitor] 10 mg PO HS 02/16/24 02/16/24 History Calcium Carbonate [Calcium] 1,200 mg PO HS 02/16/24 02/16/24 History Cholecalciferol (Vitamin D3) 125 mcg PO HS 02/16/24 02/16/24 History [Vitamin D3 (125 MCG = 5,000 IU)] Lactobacillus Rhamnosus GG 1 cap PO HS 02/16/24 02/16/24 History [Culturelle] Phentermine HCl [Adipex-P] 37.5 mg PO DIRECTED 02/16/24 02/16/24 History Triamterene/Hydrochlorothiazid 1 tab PO HS 02/16/24 02/16/24 History [Triamterene-Hctz 37.5-25 mg Tb] Allergies Allergy/AdvReac Type Severity Reaction Status Date / Time Iodinated Contrast Media Allergy Rash/Hives Verified 02/16/24 10:05 [Iodinated Contrast Media - IV Dye] lidocaine Allergy Rash/Hives Verified 02/16/24 10:05 penicillin G Allergy Rash/Hives Verified 02/16/24 10:05 Penicillins Allergy Rash/Hives Verified 02/16/24 10:05 Sulfa (Sulfonamide Allergy Rash/Hives Verified 02/16/24 10:05 Antibiotics) Physical Exam Vitals: Vital Signs Temp Pulse Resp BP Pulse Ox 02/16/24 10:45 66 18 110/72 95 02/16/24 06:17 99 20 167/100 96 02/16/24 05:48 78 18 142/98 93 L 02/16/24 04:59 98.0 F 94 18 129/87 96 Intake and Output 02/15/24 02/16/24 02/16/24 22:59 06:59 14:59 Other: Weight 86.183 kg Results 02/16/24 05:19 02/16/24 05:19 Cardiac Enzymes 02/16/24 02/16/24 02/16/24 Range/Units 05:19 05:19 10:27 AST 25 (14-36) U/L Troponin I <0.012 <0.012 (0.000-0.034) ng/mL Coagulation 02/16/24 Range/Units 05:19 PT 9.9 L (10.0-12.5) sec APTT 23.5 (22.0-30.0) sec CBC 02/16/24 Range/Units 05:19 WBC 9.6 (3.8-10.6) k/uL RBC 4.77 (3.80-5.40) m/uL Hgb 15.3 (11.4-16.0) gm/dL Hct 45.6 (34.0-46.0) % Plt Count 236 (150-450) k/uL Comprehensive Metabolic Panel 02/16/24 Range/Units 05:19 Sodium 137 (137-145) mmol/L Potassium 3.9 (3.5-5.1) mmol/L Chloride 105 (98-107) mmol/L Carbon Dioxide 23 (22-30) mmol/L BUN 20 H (7-17) mg/dL Creatinine 0.84 (0.52-1.04) mg/dL Glucose 111 H (74-99) mg/dL Calcium 9.6 (8.4-10.2) mg/dL AST 25 (14-36) U/L ALT 26 (4-34) U/L Alkaline Phosphatase 58 (38-126) U/L Total Protein 7.3 (6.3-8.2) g/dL Albumin 4.6 (3.5-5.0) g/dL Current Medications Generic Name Dose Route Start Last Admin Trade Name Freq PRN Reason Stop Dose Admin Aspirin 81 mg 02/16/24 21:00 Aspirin 81 Mg PO HS SANDRA Atorvastatin Calcium 10 mg 02/16/24 21:00 Atorvastatin 10 Mg Tab PO HS SANDRA Calcium Carbonate/Glycine 1,000 mg 02/16/24 21:00 Calcium Carbonate 500 Mg Chewable PO HS SANDRA Cholecalciferol 125 mcg 02/16/24 21:00 Cholecalciferol 125 Mcg (5000 Iu) Tablet PO HS SANDRA Enoxaparin Sodium 40 mg 02/16/24 11:00 02/16/24 11:39 Enoxaparin 40 Mg/0.4 Ml Syringe SQ 40 mg DAILY SANDRA Administration Hydromorphone HCl 0.5 mg 02/16/24 08:16 Hydromorphone 0.5 Mg/0.5 Ml Syringe IVP 02/17/24 08:17 Q3HR PRN Moderate Pain (Scale 4 to 6) Hydromorphone HCl 1 mg 02/16/24 08:16 Hydromorphone 1 Mg/Ml 1 Ml Syringe IVP 02/17/24 08:17 Q3HR PRN Severe Pain (Scale 7 to 10) Hydroxychloroquine Sulfate 400 mg 02/16/24 21:00 Hydroxychloroquine Sulfate 200 Mg Tab PO HS SANDRA Sodium Chloride 1,000 mls @ 75 mls/hr 02/16/24 08:30 02/16/24 08:59 Saline 0.9% IV 75 mls/hr .[id number] SANDRA Administration Lactobacillus Acidophilus 1 each 02/16/24 21:00 Lactobacillus Acidophilus/Pect 1 Each Capsule PO HS SANDRA Levothyroxine Sodium 75 mcg 02/16/24 21:00 Levothyroxine 75 Mcg Tab PO HS SANDRA Naloxone HCl 0.2 mg 02/16/24 08:16 Naloxone 0.4 Mg/Ml 1 Ml Vial IV Q2M PRN Opioid Reversal Ondansetron HCl 4 mg 02/16/24 08:16 Ondansetron 4 Mg/2 Ml Vial IVP Q8HR PRN Nausea And Vomiting Spironolactone 100 mg 02/16/24 21:00 Spironolactone 25 Mg Tab PO HS SANDRA Intake and Output 02/15/24 02/16/24 02/16/24 22:59 06:59 14:59 Other: Weight 86.183 kg 02/16/24 05:19 02/16/24 05:19
--- NOTE | 2024-02-16 15:41 | P.HPIM ---
History of Present Illness H&P Date: 02/16/24 Chief Complaint: Heartburn This is a pleasant 58-year-old patient follows with Dr. Dipak Westbrook. Chronic stable medical conditions include hypertension, hypothyroid, Sjogren's. Prior history of left breast cancer treated with local surgery and chemotherapy. Allie ent's pain is somewhat pleuritic in nature. No prior cardiac history Patient last night had heartburn. No help with antacid. The pain went to her back and shoulder. No shortness of breath no dizziness no lightheadedness no perspiration. Did feel a bit tired. 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 Patient has a strong family history from her father side. Including a father uncles. On January 25 she had a cholecystectomy in January had a upper and lower GI scope by Dr Grady. Review of systems: GEN.: None EYES: None HEENT: None NECK: None RESPIRATORY: As above e CARDIOVASCULAR: As above GASTROINTESTINAL: None GENITOURINARY: None MUSCULOSKELETAL: None LYMPHATICS: None HEMATOLOGICAL: None PSYCHIATRY: None NEUROLOGICAL: None Social history: . Works at a factory. Smokes about half a pack a day for last 25 years no alcohol. Physical examination: VITAL SIGNS: 98, 99, 20, 167/100, 96% on 2 L GENERAL: BMI 32.6, reclining in bed awake comfortable. EYES: Pupils equal. Conjunctiva christine l. HEENT: External appearance of nose and ears normal, oral cavity grossly normal. NECK: JVD not raised; masses not palpable. HEART: First and second heart sounds are normal; no edema. LUNGS: Respiratory rate normal; fair air entry. ABDOMEN: Soft, nontender, liver spleen not palpable, no masses palpable. PSYCH: Alert and oriented x3; mood and affect christine l. MUSCULOSKELETAL:No Clubbing/cyanosis;muscles-grossly intact NEUROLOGICAL: Cranial nerves grossly intact; no facial asymmetry, power and sensation grossly intact. LYMPHATICS: No lymph nodes palpable in the axilla and neck INVESTIGATIONS, reviewed in the clinical context: February 15: White count 9.6 hemoglobin 15.3 platelets 236 sodium 137 potassium 3.9 BUN 20 creatinine 0.84 Troponin I less than 0.012 x 3 EKG tracing personally reviewed by me-normal sinus rhythm. Questionable ST depression in inferolateral leads Chest CTA: Negative for PE CT abdomen pelvis: Unremarkable DJD changes lumbar spine Assessment plan: -Anterior chest wall pain. Risk factor include smoking and a strong family history from father side. Troponin negative. Subtle EKG changes. Cardiology consulted. For stress test. -Chronic nicotine dependence cigarette smoker Nicotine patch -Hyperlipidemia Lipitor 10 mg nightly -Hypothyroid Synthroid 75 mcg nightly -Essential hypertension Aldactone, diuretic -Obesity BMI 32.6 Weight loss measures Care was discussed with the patient. Questions answered 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, breast cancer History of Any Multi-Drug Resistant Organisms: None Reported Past Surgical History: Appendectomy, Breast Surgery, Cholecystectomy, Tubal Li gation Additional Past Surgical History / Comment(s): fibroids removed from [facility]24 cholycystectomy, lumpectomy 2015 Past Anesthesia/Blood Transfusion Reactions: No Reported Reaction Additional Past Anesthesia/Blood Transfusion Reaction / Comment(s): no blood transfusion Past Psychological History: No Psychological Hx Reported Smoking Status: Current every day smoker Past Alcohol Use History: None Reported Past Drug Use History: None Reported - Past Family History Mother Family Medical History: Hypertension Medications and Allergies Home Medications Medication Instructions Recorded Confirmed Type Aspirin EC [Ecotrin Low Dose] 81 mg PO HS 01/22/24 02/16/24 History Estradiol Cream [Estrace Cream 1 gm VAGINAL DIRECTED PRN 01/22/24 02/16/24 History 0.01%] Hydroxychloroquine Sulfate 400 mg PO HS 01/22/24 02/16/24 History [Plaquenil] Levothyroxine Sodium [Synthroid] 75 mcg PO HS 01/22/24 02/16/24 History Spironolactone [Aldactone] 100 mg PO HS 01/22/24 02/16/24 History Atorvastatin [Lipitor] 10 mg PO HS 02/16/24 02/16/24 History Calcium Carbonate [Calcium] 1,200 mg PO HS 02/16/24 02/16/24 History Cholecalciferol (Vitamin D3) 125 mcg PO HS 02/16/24 02/16/24 History [Vitamin D3 (125 MCG = 5,000 IU)] Lactobacillus Rhamnosus GG 1 cap PO HS 02/16/24 02/16/24 History [Culturelle] Phentermine HCl [Adipex-P] 37.5 mg PO DIRECTED 02/16/24 02/16/24 History Triamterene/Hydrochlorothiazid 1 tab PO HS 02/16/24 02/16/24 History [Triamterene-Hctz 37.5-25 mg Tb] Allergies Allergy/AdvReac Type Severity Reaction Status Date / Time Iodinated Contrast Media Allergy Rash/Hives Verified 02/16/24 10:05 [Iodinated Contrast Media - IV Dye] lidocaine Allergy Rash/Hives Verified 02/16/24 10:05 penicillin G Allergy Rash/Hives Verified 02/16/24 10:05 Penicillins Allergy Rash/Hives Verified 02/16/24 10:05 Sulfa (Sulfonamide Allergy Rash/Hives Verified 02/16/24 10:05 Antibiotics) Physical Exam Vitals: Vital Signs Temp Pulse Resp BP Pulse Ox 02/16/24 06:17 99 20 167/100 96 02/16/24 05:48 78 18 142/98 93 L 02/16/24 04:59 98.0 F 94 18 129/87 96 Intake and Output 02/15/24 02/16/24 02/16/24 22:59 06:59 14:59 Other: Weight 86.183 kg Results CBC & Chem 7: 02/16/24 05:19 02/16/24 05:19 Labs: Abnormal Lab Results - Last 24 Hours (Table) 02/16/24 02/16/24 Range/Units 05:19 05:19 PT 9.9 L (10.0-12.5) sec BUN 20 H (7-17) mg/dL Glucose 111 H (74-99) mg/dL
[2024-02-16] MEDS: HYDROmorphone 0.5 MG/0.5 ML SYRINGE IVP PRN (15:54)
[2024-02-16] MEDS: NICOTINE 14MG/24HR PATCH TRANSDERM SCH (16:24)
[2024-02-16] MEDS: LACTOBACILLUS ACIDOPHILUS/PECT 1 EACH CAPSULE PO SCH (21:30)
[2024-02-16] MEDS: LEVOTHYROXINE 75 MCG TAB PO SCH (21:30)
[2024-02-16] MEDS: CALCIUM CARBONATE 500 MG CHEWABLE PO SCH (21:30)
[2024-02-16] MEDS: CHOLECALCIFEROL 125 MCG (5000 IU) TABLET PO SCH (21:31)
[2024-02-16] MEDS: ASPIRIN 81 MG PO SCH (21:31)
[2024-02-16] MEDS: SPIRONOLACTONE 25 MG TAB PO SCH (21:31)
[2024-02-16] MEDS: ATORVASTATIN 10 MG TAB PO SCH (21:31)
[2024-02-16] MEDS: HYDROXYCHLOROQUINE SULFATE 200 MG TAB PO SCH (21:31)
[2024-02-17 00:14] VITALS: RESP 16
[2024-02-17 04:35] VITALS: BP 113/78; PULSE 63
[2024-02-17 07:36] VITALS: TEMP 97.5
--- NOTE | 2024-02-17 12:19 | P.PN ---
Subjective Progress Note Date: 02/17/24 Consult reason: chest pain History of present illness: This is a 58-year-old female with past medical history of hypertension, hyperlipidemia, hypothyroidism, tobacco use and dependence, Sjogren's, and history of breast cancer status postlumpectomy and radiation therapy on the left. No chemotherapy. We have been asked to evaluate the patient for chest pain. Patient states that she developed what she thought was heartburn and she took a medication for this previously had taken Tums without improvement. She then developed pain behind her left shoulder blade and now it is under her left breast. She states the pain is still there. She has not taken any nitroglycerin. She does have some generalized chest wall tenderness which she believes is from her Sjogren's. She also has pain with deep breathing. Patient is seen today in the emergency center waiting for a bed on the cardiac stepdown unit. Blood pressure 119/78, heart rate 67. EKG: Sinus rhythm with no acute ST-T wave changes. Chest x-ray: No acute process CTA of the chest no PE CT of the abdomen pelvis with contrast no acute process Laboratory studies: Hemoglobin 15.3. D-dimer 0.29. Sodium 137, potassium 3.9, BUN 20 creatinine 0.84. Troponin negative x 3. proBNP 34. Home cardiac medications: Aspirin 81 mg daily, Lipitor 10 mg at bedtime, Aldactone 100 mg at bedtime, triamterene/hydrochlorothiazide 1 tablet at bedtime, also on levothyroxine. 02/16 Patient is seen today in follow-up on the observation unit. She denies having any chest pain. She is scheduled for stress echocardiogram this morning, as well as, echocardiogram. Blood pressure 113/78, heart rate 63, pulse ox 95% on room air. Physical examination: Gen: This is a 58-year-old female in no acute distress. VS: reviewed HEENT: Head is atraumatic, normocephalic. Pupils equal, round. Sclerae is anicteric. NECK: Supple. No JVD. LUNGS: Clear to auscultation. No wheezes or rhonchi. No intercostal retra ctions. HEART: Regular rate and rhythm. No murmur. Generalized chest wall tenderness. ABDOMEN: Soft No tenderness. EXTREMITIES: No pedal edema. No calf tenderness. NEUROLOGICAL: Patient is awake, alert and oriented x3. Assessment: Atypical chest pain, acute coronary syndrome ruled out with negative troponins Hypertension Hyperlipidemia Hypothyroidism Tobacco use and dependence Sjogren's History of breast cancer s/p lumpectomy, radiation therapy Plan: Resume patient's home cardiac medications Obtain stress echocardiogram Obtain 2-D echocardiogram and Doppler study to assess cardiac structure and function Smoking cessation. Patient will be provided with [employer] quit line information at discharge. If cardiac testing is unremarkable, patient is cleared for discharge and may follow-up in the office with Dr. Beard in 1 to 2 weeks. Nurse practitioner note has been reviewed, I agree with documented findings and plan of care. Patient was seen and examined. Objective - Vital Signs Vital signs: Vital Signs Temp 97.5 F L 02/17/24 07:34 Pulse 63 02/17/24 04:34 Resp 16 02/17/24 07:34 BP 113/78 02/17/24 04:34 Pulse Ox 95 02/17/24 07:34 FiO2 - Labs CBC & Chem 7: 02/16/24 05:19 02/16/24 05:19
--- NOTE | 2024-02-17 12:59 | CA ---
Stress Echo Report Jasmine Britton Age: 58 Gender: F : 1965 Exam Date: 02/17/2024 11:32 Exam Location: [place] [facility] Ht (in): 64 Wt (lb): 190 Ordering Physician: Fauzia Bales Referring Physician: Nii CHAMPION Rigging Man: [email or web address], Technologist Procedure CPT: Indication: Chest Pain ICD-9 Codes: Rhythm: Patient History: CP, CHOL ,FAMILY HX, TOB, CATH Cardiac Medications: SEE CHART Medications in past 24 hours: Contrast: Definity Stress Results Protocol: Total dose(mL): 3 Exercise Duration (min:sec): 5:[address] Depression (mm): Angina Score: Ovalle Score: METS: 7.0 Resting HR: 84 Resting BP: 111 / 56 Peak HR: 142 Peak BP: 157 / 71 Max Predicted HR: 160 89 % Max Predicted HR Target HR: 136 Double Product: [id number] Stress Summary: Patient exercised on protocol for 5 minutes 4 seconds achieving 89% age- predicted of maximum heart rate. Patient did not encounter any symptoms of chest pain chest pressure with stress. Patient able to achieve 7 metabolic equivalents BP Response: Reason for Termination: Reached target heart rate or work-load Cardiac Symptoms: ASYMPTOMATIC ECG Analysis Resting ECG: Normal sinus rhythm, normal axis, no blocks, normal ECG Stress ECG: No significant ST or T wave changes that are diagnostic for ischemia by ST segment analysis. Arrhythmia: There were no sustained arrhythmias or ectopic beats noted during the stress test Echo Analysis Resting Echo: Normal global and segmental systolic function. No resting regional wall motion abnormality Peak Echo Analysis: Normal augmentation of global and segmental systolic function. No stress-induced regional wall motion abnormality MEASUREMENTS (Male/Female) Normal Values CONCLUSIONS Fair exercise tolerance for age achieving 7 METS Normal hemodynamic and clinical response to treadmill exercise Nonischemic ECG and echocardiographic response to treadmill exercise Overall normal treadmill echo stress Dr Aldair Beard (Electronically Signed) Final Date: 17 February 2024 12:58
--- NOTE | 2024-02-17 13:21 | CA ---
Transthoracic Echo Report Name: Jasmine Britton Age: 58 Gender: F : 1965 Exam Date: 02/17/2024 11:13 Exam Location: [place] [facility] Ht (in): 64 Wt (lb): 190 Ordering Physician: Fauzia Bales Attending/Referring Phys: [id number], Nii Edging Machine Feeder Shanda Marquez, RDCARRINGTON Procedure CPT: Indications: LVF Cardiac Hx: Technical Quality: Fair Contrast 1: Total Dose (mL): Contrast 2: Total Dose (mL): MEASUREMENTS (Male / Female) Normal Values 2D ECHO LV Diastolic Diameter PLAX 3.6 cm 4.2 - 5.9 / 3.9 - 5.3 cm LV Systolic Diameter PLAX 2.9 cm IVS Diastolic Thickness 1.0 cm 0.6 - 1.0 / 0.6 - 0.9 cm LVPW Diastolic Thickness 1.1 cm 0.6 - 1.0 / 0.6 - 0.9 cm LV Relative Wall Thickness 0.6 RV Internal Dim ED PLAX 2.0 cm LVOT Diameter 1.8 cm LA Systolic Diameter LX 2.7 cm 3.0 - 4.0 / 2.7 - 3.8 cm LV Diastolic Volume MOD BP 67.8 cm??? 67 - 155 / 56 - 104 cm??? LV Systolic Volume MOD BP 18.3 cm??? 22 - 58 / 19 - 49 cm??? LV Ejection Fraction MOD BP 73.0 % >= 55 % LV Cardiac Index MOD BP 1875.1 cm???/min???m??? LV Diastolic Volume MOD 4C 55.4 cm??? LV Systolic Volume MOD 4C 19.9 cm??? LV Ejection Fraction MOD 4C 64.0 % LV Cardiac Index MOD 4C 1345.0 cm???/min???m??? LV Diastolic Length 4C 6.4 cm LV Systolic Length 4C 5.4 cm LV Diastolic Volume MOD 2C 75.9 cm??? LV Systolic Volume MOD 2C 17.0 cm??? LV Ejection Fraction MOD 2C 77.6 % LV Cardiac Index MOD 2C 2230.3 cm???/min???m??? LV Diastolic Length 2C 7.0 cm LV Systolic Length 2C 5.5 cm M-MODE Aortic Root Diameter MM 3.0 cm LA Systolic Diameter MM 3.4 cm LA Ao Ratio MM 1.1 AV Cusp Separation MM 1.0 cm DOPPLER Mitral E Point Velocity 79.2 cm/s Mitral A Point Velocity 97.2 cm/s Mitral E to A Ratio 0.8 MV Deceleration Time 259.4 ms MV E' Velocity 8.1 cm/s Mitral E to MV E' Ratio 9.8 TR Peak Velocity 182.2 cm/s TR Peak Gradient 13.3 mmHg Right Ventricular Systolic Press 18.3 mmHg FINDINGS Left Ventricle Left ventricular ejection fraction is estimated at 60-65 %. Mildly increased septal wall thickness. Mildly increased posterior wall thickness. Left ventricular cavity size normal. No obvious regional wall motion abnormalities. Right Ventricle Right ventricle not well visualized. Normal right ventricular size and function. Right Atrium Normal right atrial size. Left Atrium Normal left atrial size. Mitral Valve Structurally normal mitral valve. Trace to mild mitral regurgitation. Aortic Valve Trileaflet aortic valve. Diffuse thickening (sclerosis) of the aortic valve cusps without reduced excursion. No aortic regurgitation. Tricuspid Valve Structurally normal tricuspid valve. Trace to mild tricuspid regurgitation. Pulmonic Valve Structurally normal pulmonic valve. Trace pulmonic regurgitation. Pericardium No pericardial or pleural effusion. Aorta Normal size aortic root and proximal ascending aorta. CONCLUSIONS Left ventricular ejection fraction is estimated at 60-65 %. No obvious regional wall motion abnormalities. Mild concentric LVH Mild aortic valve sclerosis. No significant valvular dysfunction No significant chamber size abnormality Previewed by: Dr Aldair Beard (Electronically Signed) Final Date: 17 February 2024 13:20
[2024-02-17] MEDS: NAPROXEN 250 MG TAB PO STA (14:10)
--- NOTE | 2024-02-17 15:02 | P.PN ---
Subjective Progress Note Date: 02/17/24 CHIEF COMPLAINT: Chest pain HISTORY OF PRESENT ILLNESS: Patient mated to the hospital with chest pain. She underwent a stress echo today. She is followed by cardiology service. She denies any abdominal pain. Denies any nausea or vomiting. Afebrile. Patient seen and examined with Dr. Grady PHYSICAL EXAM: VITAL SIGNS: Reviewed. GENERAL: Well-developed in no acute distress. ABDOMEN: Soft. Nondistended. Nontender. ASSESSMENT: 1. Chest pain 2. Cholelithiasis with recent laparoscopic cholecystectomy on January 26, 2024 3. Recent EGD and colonoscopy with gastritis and esophagitis and normal colon PLAN: -No surgical intervention planned -Continue supportive care Physician Engineering Technologist note has been reviewed by physician. Signing provider agrees with the documented findings, assessment, and plan of care. Objective - Vital Signs Vital signs: Vital Signs Temp 97.5 F L 02/17/24 07:34 Pulse 63 02/17/24 04:34 Resp 16 02/17/24 07:34 BP 113/78 02/17/24 04:34 Pulse Ox 95 02/17/24 07:34 FiO2 Intake & Output 02/16/24 02/17/24 02/17/24 18:59 06:59 18:59 Weight 86.183 kg - Labs CBC & Chem 7: 02/16/24 05:19 02/16/24 05:19
--- NOTE | 2024-02-17 20:59 | P.DS ---
Providers Date of admission: 02/16/24 08:16 Expected date of discharge: 02/17/24 Attending physician: Gal Valadez Consults: 02/16/24 08:16 Consult Physician Routine Consulting Provider: Colt Grady Consult Reason/Comments: S/P noe Do you want consulting provider notified?: Yes Consult Physician Routine Consulting Provider: Kevin Keith Consult Reason/Comments: CP Do you want consulting provider notified?: Yes Primary care physician: [facility] Course: Chief Complaint: Heartburn This is a pleasant 58-year-old patient follows with Dr. Dipak Westbrook. Chronic stable medical conditions include hypertension, hypothyroid, Sjogren's. Prior history of left breast cancer treated with local surgery and chemotherapy. P atient's pain is somewhat pleuritic in nature. No prior cardiac history Patient last night had heartburn. No help with antacid. The pain went to her back and shoulder. No shortness of breath no dizziness no lightheadedness no perspiration. Did feel a bit tired. 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 Patient has a strong family history from her father side. Including a father uncles. On January 25 she had a cholecystectomy in January had a upper and lower GI scope by Dr Grady. February 16: Patient presents still present with some deep inspiration. Also on pushing on the breast deeply. Discussed with the patient . Webb to be musculoskeletal. Pleurisy: Stress echocardiogram and echocardiogram came back unremarkable. Cleared by cardiology for discharge Social history: . Works at a factory. Smokes about half a pack a day for last 25 years no alcohol. Physical examination: VITAL SIGNS: 97.5, 63, 16, 113/78, 95% room GENERAL: In bed comfortable EYES: Pupils equal. Conjunctiva christine l. HEENT: External appearance of nose and ears normal, oral cavity grossly normal. NECK: JVD not raised; masses not palpable. HEART: First and second heart sounds are normal; no edema. LUNGS: Respiratory rate normal; fair air entry. ABDOMEN: Soft, nontender, liver spleen not palpable, no masses palpable. PSYCH: Alert and oriented x3; mood and affect christine l. MUSCULOSKELETAL:No Clubbing/cyanosis;muscles-grossly intact anterior chest wall pain reproducible INVESTIGATIONS, reviewed in the clinical context: Stress echocardiogram: Negative for ischemia Echocardiogram: EF 60 to 65%. February 15: White count 9.6 hemoglobin 15.3 platelets 236 sodium 137 potassium 3.9 BUN 20 creatinine 0.84 Troponin I less than 0.012 x 3 EKG tracing personally reviewed by me-normal sinus rhythm. Questionable ST depression in inferolateral leads Chest CTA: Negative for PE CT abdomen pelvis: Unremarkable DJD changes lumbar spine Assessment plan: -Anterior chest wall pain. Risk factor include smoking and a strong family history from father side.: Likely musculoskeletal Troponin negative. Subtle EKG changes. Seen by cardiology Dr. Beard. 2D echo and stress echocardiogram unremarkable -Chronic nicotine dependence cigarette smoker Nicotine patch -Hyperlipidemia Lipitor 10 mg nightly -Hypothyroid Synthroid 75 mcg nightly -Essential hypertension Aldactone, diuretic -Obesity BMI 32.6 Weight loss measures Disposition: Home 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, breast cancer History of Any Multi-Drug Resistant Organisms: None Reported Past Surgical History: Appendectomy, Breast Surgery, Cholecystectomy, Tubal Ligation Additional Past Surgical History / Comment(s): fibroids removed from /10/24 cholycystectomy, lumpectomy 2015 Past Anesthesia/Blood Transfusion Reactions: No Reported Reaction Additional Past Anesthesia/Blood Transfusion Reaction / Comment(s): no blood transfusion Past Psychological History: No Psychological Hx Reported Smoking Status: Current every day smoker Past Alcohol Use History: None Reported Past Drug Use History: None Reported Plan - Discharge Summary Discharge Rx Participant: Yes New Discharge Prescriptions: New Nicotine 14Mg/24Hr Patch [Habitrol] 1 patch TRANSDERM DAILY #30 patch Naproxen [Naprosyn] 250 mg PO TID #12 tab Continue Hydroxychloroquine Sulfate [Plaquenil] 400 mg PO HS Aspirin EC [Ecotrin Low Dose] 81 mg PO HS Spironolactone [Aldactone] 100 mg PO HS Estradiol Cream [Estrace Cream 0.01%] 1 gm VAGINAL DIRECTED PRN PRN Reason: dryness Levothyroxine Sodium [Synthroid] 75 mcg PO HS Triamterene/Hydrochlorothiazid [Triamterene-Hctz 37.5-25 mg Tb] 1 tab PO HS Phentermine HCl [Adipex-P] 37.5 mg PO DIRECTED Cholecalciferol (Vitamin D3) [Vitamin D3 (125 MCG = 5,000 IU)] 125 mcg PO HS Atorvastatin [Lipitor] 10 mg PO HS Lactobacillus Rhamnosus GG [Culturelle] 1 cap PO HS Calcium Carbonate [Calcium] 1,200 mg PO HS Discharge Medication List Aspirin EC [Ecotrin Low Dose] 81 mg PO HS 01/22/24 [History] Estradiol Cream [Estrace Cream 0.01%] 1 gm VAGINAL DIRECTED PRN 01/22/24 [History] Hydroxychloroquine Sulfate [Plaquenil] 400 mg PO HS 01/22/24 [History] Levothyroxine Sodium [Synthroid] 75 mcg PO HS 01/22/24 [History] Spironolactone [Aldactone] 100 mg PO HS 01/22/24 [History] Atorvastatin [Lipitor] 10 mg PO HS 02/16/24 [History] Calcium Carbonate [Calcium] 1,200 mg PO HS 02/16/24 [History] Cholecalciferol (Vitamin D3) [Vitamin D3 (125 MCG = 5,000 IU)] 125 mcg PO HS 02/16/24 [History] Lactobacillus Rhamnosus GG [Culturelle] 1 cap PO HS 02/16/24 [History] Phentermine HCl [Adipex-P] 37.5 mg PO DIRECTED 02/16/24 [History] Triamterene/Hydrochlorothiazid [Triamterene-Hctz 37.5-25 mg Tb] 1 tab PO HS 02/16/24 [History] Naproxen [Naprosyn] 250 mg PO TID #12 tab 02/17/24 [Rx] Nicotine 14Mg/24Hr Patch [Habitrol] 1 patch TRANSDERM DAILY #30 patch 02/17/24 [Rx] Follow up Appointment(s)/Referral(s): Aldair Beard MD [Medical Doctor] - 03/16/24 9:00 am Te Westbrook MD [Primary Care Provider] - 1-2 days (please call for an appointment ) Patient Instructions/Handouts: Chest Pain (GEN), Cardiac Stress Test (GEN) Discharge Disposition: HOME SELF-CARE
--- NOTE | 2024-02-18 15:06 | XR ---
EXAM: XR Chest, 2 Views CLINICAL HISTORY: pt arrives to ED for c/o L sided chest pain that radiates to lower back that is tight and constant onset approx 00:00 today. pt denies SOB. skin w/p/d. TECHNIQUE: Frontal and lateral views of the chest. COMPARISON: No relevant prior studies available. FINDINGS: Lungs: Low lung volume accentuate pulmonary lung markings. Overall increased lung markings which may reflect low lung volume. Follow-up to exclude mild interstitial process. No consolidation. Pleural space: Unremarkable. No pneumothorax. Heart: Unremarkable. No cardiomegaly. Mediastinum: Unremarkable. Normal mediastinal contour. Bones/joints: Mild degenerative changes. No acute fracture. Vasculature: Mildly tortuous thoracic aorta. IMPRESSION: 1. Low lung volume. 2. No dense consolidation or effusion. 3. Prominent interstitial lung markings which may partly reflect low lung volume. Follow-up to exclude early interstitial process
== END 2024-02-17 15:49 | disposition home or self-care (01) ==
LOC: EC 04:54 → 6NMEDSUR 08:16
PROVIDERS: ADMIT Hospitalist; ATTEND Hospitalist
DX: R07.89 Other chest pain (principal); I10 Essential (primary) hypertension; E03.9 Hypothyroidism, unspecified; M35.00 Sjogren syndrome, unspecified; E78.5 Hyperlipidemia, unspecified; R12 Heartburn; M54.9 Dorsalgia, unspecified; M25.512 Pain in left shoulder; M54.2 Cervicalgia; E66.9 Obesity, unspecified; Z68.32 Body mass index [BMI] 32.0-32.9, adult; F17.210 Nicotine dependence, cigarettes, uncomplicated; Z79.82 Long term (current) use of aspirin; Z79.890 Hormone replacement therapy; Z79.899 Other long term (current) drug therapy; Z88.0 Allergy status to penicillin; Z88.2 Allergy status to sulfonamides; Z88.4 Allergy status to anesthetic agent; Z91.041 Radiographic dye allergy status; Z90.49 Acquired absence of other specified parts of digestive tract; Z85.3 Personal history of malignant neoplasm of breast; Z92.3 Personal history of irradiation; Z98.890 Other specified postprocedural states; Z87.19 Personal history of other diseases of the digestive system; Z82.49 Family history of ischemic heart disease and other diseases of the circulatory system
CPT/HCPCS: 96372 ×2; 96376; 96361; 96374; 96375; 99285; 36415; 93005; 93306; 93351; 85379; 83880; 80053; 83690; 83735; 84484; 85025; 85610; 85730; 71046; 71275; 74177; G0378 ×2; S4990; J2060; J1200; J1650 ×2; J3490; J1170 ×2; J1885; Q9967; J2919